=== PATIENT | female | born 1970 | race Caucasian/White ===

== ENCOUNTER 2023-12-09 11:24 | Emergency (ER) | payer OTHER, SELFPAY ==
[2023-12-09 11:29] VITALS: BP 130/96
[2023-12-09] MEDS: TYLENOL 1000 MG PO (12:54)
[2023-12-09 13:29] LABS: % Basophils 0.5 % (0-2); % Eosinophils 2.7 % (0-6); % Lymphocytes 12.8 % (20.5-51.1); % Monocytes 18.7 % (1.7-9.3); % Neutrophils 65.3 % (42.2-75.2); Absolute Eosinophils 0.1 10^3/uL (0-0.7); Absolute Lymphocytes 0.2 10^3/uL (1.2-3.4); Absolute Monocytes 0.4 10^3/uL (0.1-0.6); Absolute Neutrophils 1.2 10^3/uL (1.4-6.5); Hematocrit 42.1 % (37.0-47.0); Hemoglobin 14.5 g/dL (12.0-16.0); Mean Corp Hgb Conc. 34.4 g/dL (33.0-37.0); Mean Corpuscular Hgb 29.6 pg (27.0-31.0); Mean Corpuscular Volume 85.9 fL (81.0-99.0); Mean Platelet Volume 9.8 fL (7.4-10.4); Nucleated Red Blood Cells % 0 %; Platelet Count 139 10^3/uL (130-400); Red Cell Dist. Width 12.8 % (11.5-14.5)
[2023-12-09 13:33] LABS: White Blood Cell Count 1.9 10^3/uL (4.8-10.8)
--- NOTE | 2023-12-09 13:36 | ED.GENMED ---
History of Present Illness
<Marley Best NP - Last Filed: 12/09/23 17:35>
General
Chief Complaint: Chest Pain
Source: patient
Exam Limitations: none
Time Seen by Provider: 12/09/23 12:15
Nursing documentation reviewed up to this point in time: agreed with
Travel History
Have you had any contact with someone who has COVID-19?: No
Do you have any symptoms of coronavirus? Fever > 100 degrees, chills, cough, shortness of breath, sore throat, loss of taste or smell, muscle aches, or headache?: No
History of Present Illness
History of Present Illness:
Patient to ED with complaint of chest pain, pounding heart, body aches, nausea. States symptoms started approx 2 days ago. Today with headache. Denies any SOB, cough. [place] feverish at home but took temp and states it was normal. Brought to ED
accompanied by m other for eval.
Past History
<Marley Best BREWERY REPRESENTATIVE - Last Filed: 12/09/23 17:35>
Past History
ED Past Medical History: Hypothyroidism and Psychiatric (anxiety)
ED Past Surgical History: Orthopedic and Tonsilectomy
Social History
Tobacco: Non-smoker
Alcohol: Daily (wine)
Drug: None
Living: with family
Review of Systems
<Marley Best BREWERY REPRESENTATIVE - Last Filed: 12/09/23 17:35>
Review of Systems
Allergies reviewed?: Yes
All Other Systems: ROS reviewed and negative except as documented in HPI and ROS
Constitutional: Reports fever and fatigue
EENT: Reports no symptoms
Respiratory: Reports no symptoms
Cardiac: Reports chest pain
ABD/GI: Reports nausea
: Reports no symptoms
Musculoskeletal: Reports no symptoms
Skin: Reports no symptoms
Neurological: Reports weakness
Psychiatric: Reports no symptoms
Phy Exam
<Marley Best BREWERY REPRESENTATIVE - Last Filed: 12/09/23 17:35>
General Physical Exam
General Presentation: well appearing and no apparent distress
General age: appears stated age
General Skin: warm and dry
General Habitus: normal
General Mental: alert
Cardiovascular Exam
Cardiovascular Exam: regular rate/rhythm and no edema
Pulmonary Exam
Pulmonary Exam: lungs clear and no respiratory distress
Gastrointestinal Exam
Gastrointestinal Exam: normal bowel sounds, non tender, soft and no organomegaly
Neurological Exam
Neurological Exam: alert, oriented x3, no motor deficits, no sensory deficits and speech normal
Musculoskeletal Exam
Musculoskeletal Exam: full ROM and neuro vasc intact
Skin Exam
Skin Exam: normal color, warm/dry and no rash
Psychiatric Exam
Psychiatric Exam: normal mood/affect
Scores
<Marley Best BREWERY REPRESENTATIVE - Last Filed: 12/09/23 17:35>
Heart Score for Chest Pain Patients
STEMI patient?: Not applicable
Course
<Marley Best BREWERY REPRESENTATIVE - Last Filed: 12/09/23 17:35>
Orders/Labs/Results
Orders:
Orders
12/09/23 11:26
EKG [Electrocardiogram (*1)] Urgent
Reason for Study: Chest Pain
EKG- Treatment ONCE
12/09/23 12:31
Urinalysis Reflex To Culture Urgent
Date Specimen was Collected: 12/09/23
Time Specimen was Collected: 12:30
12/09/23 12:47
Acetaminophen [Tylenol] 1,000 mg PO NOW STA
12/09/23 12:48
Complete Blood Count/With Diff Urgent
Comprehensive Metabolic Panel Urgent
Lactic Acid Urgent
Blood Culture Q30M
TRENT Source: Blood/Venous
Specimen Description:
Influenza A+B Rapid Molecular Urgent
TRENT Source: Nasal Swab
Specimen Description:
12/09/23 13:15
Blood Culture Q30M
TRENT Source: Blood/Venous
Specimen Description:
12/09/23 13:45
0.9% Sodium Chloride 1000 ml [Nss] 1,000 ml IV BOLUS
12/09/23 14:22
COVID-19 Antigen Urgent
Source: Nasal Swab
12/09/23 15:31
Add On- LAB Urgent
Tests Added?: Lyme titer
12/09/23 15:35
CR Chest - 2 Views Urgent
Comment:
Reason For Exam: fever
Abnormal Lab Results
12/09/23
12:48
WBC 1.9 L* 10^3/uL
(4.8-10.8)
Absolute Neuts (auto) 1.2 L 10^3/uL
(1.4-6.5)
Absolute Lymphs (auto) 0.2 L 10^3/uL
(1.2-3.4)
Lymphocytes % 12.8 L %
(20.5-51.1)
Monocytes % 18.7 H %
(1.7-9.3)
Sodium 132 L mmol/L
(135-145)
12/09/23 12:48
12/09/23 12:48
Vital Signs
Initial and Last Documented VS:
Initial Vital Signs
Temp Pulse Resp BP Pulse Ox
101.9 F H 95 16 130/96 98
12/09/23 11:29 12/09/23 11:29 12/09/23 11:29 12/09/23 11:29 12/09/23 11:29
Last Documented Vital Signs
Temp Pulse Resp BP Pulse Ox
99.7 F 71 16 106/67 96
12/09/23 14:02 12/09/23 14:27 12/09/23 14:27 12/09/23 15:00 12/09/23 15:00
<Ji Chaparro MD - Last Filed: 12/09/23 16:51>
Orders/Labs/Results
Orders:
Orders
12/09/23 11:26
EKG [Electrocardiogram (*1)] Urgent
Reason for Study: Chest Pain
EKG- Treatment ONCE
12/09/23 12:31
Urinalysis Reflex To Culture Urgent
Date Specimen was Collected: 12/09/23
Time Specimen was Collected: 12:30
12/09/23 12:47
Acetaminophen [Tylenol] 1,000 mg PO NOW STA
12/09/23 12:48
Complete Blood Count/With Diff Urgent
Comprehensive Metabolic Panel Urgent
Lactic Acid Urgent
Blood Culture Q30M
TRENT Source: Blood/Venous
Specimen Description:
Influenza A+B Rapid Molecular Urgent
TRENT Source: Nasal Swab
Specimen Description:
12/09/23 13:15
Blood Culture Q30M
TRENT Source: Blood/Venous
Specimen Description:
12/09/23 13:45
0.9% Sodium Chloride 1000 ml [Nss] 1,000 ml IV BOLUS
12/09/23 14:22
COVID-19 Antigen Urgent
Source: Nasal Swab
12/09/23 15:31
Add On- LAB Urgent
Tests Added?: Lyme titer
12/09/23 15:35
CR Chest - 2 Views Urgent
Comment:
Reason For Exam: fever
Abnormal Lab Results
12/09/23
12:48
WBC 1.9 L* 10^3/uL
(4.8-10.8)
Absolute Neuts (auto) 1.2 L 10^3/uL
(1.4-6.5)
Absolute Lymphs (auto) 0.2 L 10^3/uL
(1.2-3.4)
Lymphocytes % 12.8 L %
(20.5-51.1)
Monocytes % 18.7 H %
(1.7-9.3)
Sodium 132 L mmol/L
(135-145)
12/09/23 12:48
12/09/23 12:48
Vital Signs
Initial and Last Documented VS:
Initial Vital Signs
Temp Pulse Resp BP Pulse Ox
101.9 F H 95 16 130/96 98
12/09/23 11:29 12/09/23 11:29 12/09/23 11:29 12/09/23 11:29 12/09/23 11:29
Last Documented Vital Signs
Temp Pulse Resp BP Pulse Ox
99.7 F 71 16 106/67 96
12/09/23 14:02 12/09/23 14:27 12/09/23 14:27 12/09/23 15:00 12/09/23 15:00
<Marley Best NP - Last Filed: 12/09/23 17:35>
*Radiology
Radiology exam reviewed: radiology read reviewed
*Pulse Oximetry
Patient hypoxic: no
*Critical Care Note
Total Time (30-74mins, 75-104mins- exclusive of procedures): Not Applicable
<Marley Best NP - Last Filed: 12/09/23 17:35>
Update Note
Update Note:
Labs reviewed, WBC 1.9 noted. All other results are acceptable. Discussed findings with patient. Most likely viral cause. She is discharged home with close follow up with PCP. Recommend repeat [employer] in 1-2 weeks and she is agreeable to plan.
Given instructions on s/s to return to ED.
ED Attending Note
<Marley Best NP - Last Filed: 12/09/23 17:35>
-
Portions of this chart may have been created with voice recognition software.� Occasional wrong word or��sound alike� substitutions may have occurred due to the inherent limitations of voice recognition software.
<Ji Chaparro MD - Last Filed: 12/09/23 16:51>
ED Attending Note
Patient seen and examined by attending physician: Yes
I performed the substantive portion of visit, reviewed & personally made and approve the management plan that is documented in note by myself or AI.: Yes
ED Attending Note:
Patient complaining of nausea general achiness started 3 days ago. Low-grade fever. No other focal symptoms denying cough congestion sore throat abdominal pain urinary symptoms rash etc. No unusual travel history or family history.
On exam patient is very nontoxic in no distress. Warm and dry. No pharyngeal erythema. Neck is supple and nontender. Lungs are clear and equal. No CVA tenderness. Heart regular rate and rhythm no murmur. Abdomen soft and nontender. She is
warm and dry and perfusing well.
Labs and testing are all unremarkable. Mild low white count. Likely viral. Symptomatic treatment close follow-up repeat white count is in. No indication for antibiotics or admission at this time
Discharge Plan
Departure
Patient Disposition: Home (Routine Discharge)
Date of Disposition: 12/09/23
Time of Disposition: 15:32
Patient with high blood pressure during this ER visit?: No
Condition: Good
Covid-19: Not Applicable
Discharge Problem:
Viral illness
Instructions: Fever, Adult (DC), Viral Syndrome (DC)
Prescriptions:
No Action
sertraline 100 mg Tablet
100 mg PO DAILY
ibuprofen [Advil] 200 mg Tablet
200 mg PO BIDPRN PRN (Reason: MILD PAIN)
bupropion HCl [Wellbutrin XL] 150 mg Tablet Extended Release 24 Hr
150 mg PO DAILY
Estradiol Compound
1 cap PO DAILY
Progesterone Compound
1 cap PO HS
Testosterone Compound Cream
1 applic topical DAILY
Thyriod Compound
1 cap PO DAILY
Juice Plus Liquid
1 ea PO DAILY
Referrals:
Aida Calvo MD [Family Provider] -
Interventions
Interventions:
*Risk Screen - Suicide Last Done: 12/09/23 11:29
*General Assessment Last Done: 12/09/23 11:29
*Neglect/Abuse Screening Last Done: 12/09/23 11:29
ED- Fall Risk Assessment Last Done: 12/09/23 14:00
*ED COVID-19 Vaccine History Last Done: 12/09/23 16:21
*Nursing Disposition Last Done: 12/09/23 16:21
ED- Cardiac Assessment Last Done: 12/09/23 14:00
Discharge Date and Time
Discharge Date/Time: 12/09/23 16:00
Print Language: PRYDEINIG
[2023-12-09 13:39] LABS: Lactic Acid 0.7 mmol/L (0.7-2.0)
[2023-12-09 13:40] LABS: ALT (SGPT) 26 U/L (0-35); AST (SGOT) 28 U/L (14-36); Albumin 4.3 g/dl (3.5-5.0); Alkaline Phosphatase 73 U/L (38-126); Blood Urea Nitrogen 13 mg/dl (7-17); Calcium 9.3 mg/dl (8.4-10.2); Carbon Dioxide 25 mmol/L (22-30); Chloride 102 mmol/L (98-107); Glucose 84 mg/dl (70-99); Potassium 4.1 mmol/L (3.5-5.1); Sodium 132 mmol/L (135-145); Total Bilirubin 0.3 mg/dl (0.2-1.3); Total Protein 6.8 g/dl (6.3-8.2); eGFR > 60.00
[2023-12-09 13:43] LABS: Urine Albumin Negative (Neg - Trace); Urine Bilirubin Negative (Negative); Urine Character Clear (Clear); Urine Color Yellow; Urine Glucose Negative (Negative); Urine Ketone Negative (Negative); Urine Leukocyte Negative (Negative); Urine Nitrite Negative (Negative); Urine Occult Blood Negative (Negative); Urine Specific Gravity 1.015 (<1.030); Urine Urobilinogen Negative (Neg - 1+)
[2023-12-09] MEDS: NSS 1000 IV (14:01)
[2023-12-09 14:02] VITALS: BP 126/88
[2023-12-09 14:26] VITALS: BP 123/79
[2023-12-09 14:53] LABS: COVID-19 Antigen Negative (Negative)
[2023-12-09 15:00] VITALS: BP 106/67
== END 2023-12-09 16:00 | disposition home or self-care (01) ==
LOC: EMR 11:24
PROVIDERS: Nurse Practitioner; EMERGENCY PHYSICIAN Emergency Medicine; FAMILY PHYSICIAN Internal Medicine
DX: B34.9 Viral infection, unspecified (principal); E03.9 Hypothyroidism, unspecified; F41.9 Anxiety disorder, unspecified
CPT/HCPCS: 99283; 71046; 80053; 81003; 83605; 85025; 87040; 87502; 87811; 93005

== ENCOUNTER → 2024-06-14 13:11 | Outpatient (REF) | payer OTHER, SELFPAY | LOC: HWRAD 13:11 | PROVIDERS: ATTENDING PHYSICIAN Chiropractor; FAMILY PHYSICIAN Internal Medicine | DX: M54.6 Pain in thoracic spine (principal); R91.8 Other nonspecific abnormal finding of lung field | CPT/HCPCS: 71046; 72072 ==